=== PATIENT | male | born 1965 | race Caucasian/White ===

== ENCOUNTER 2018-08-12 10:42 | Day surgery (SDC) | payer OTHER ==
--- NOTE | 2018-07-20 09:10 | HP ---
Amended report to enter cosigning physician. PREOPERATIVE HISTORY AND PHYSICAL: DATE OF ADMISSION/SURGERY: 07/21/18 DATE OF OFFICE VISIT/ENCOUNTER: 07/18/18 ATTENDING SURGEON: Yumiko Mensah MD* (dictated by CRISTOFER Hogan). PROCEDURE: Open reduction and internal fixation, left 5th metacarpal. DRAFTING CLERK: Dr. Catalan. HISTORY OF PRESENT ILLNESS: This is a 53-year-old male who sustained injury to his right hand, specifically his 5th metacarpal on 07/12/18. He hit his hand on the top of a couch and ended up impacting hard bar instead of the cushion. He suffered a fracture of his 5th metacarpal. An x-ray of the hand showed a displaced fracture of the 5th metacarpal shaft. He denies any injury. He denies any associated numbness and tingling. This is his dominant hand. After clinical evaluation and review of x-rays, Dr. Mensah is recommending surgical intervention for best outcome and the patient has consented to proceed. He has cardiac history of a myocardial infarction in 2014. Stent placement in 2014. We will receive clearance from his chair spring assembler, Hossein prior to proceeding the surgery. The patient is on Plavix and he will remain on Plavix during the perioperative timeframe. PAST MEDICAL HISTORY: 1. Myocardial infarction in 2014. 2. Hypercholesterolemia. 3. GERD. 4. Bipolar disorder. PAST SURGICAL HISTORY: 1. Stent placement in 2014. 2. Right ankle. 3. Left hip. 4. Testicular torsion. CURRENT MEDICATIONS: 1. Aspirin 81 mg daily. 2. Atorvastatin calcium 80 mg daily. 3. Gabapentin 400 mg daily. 4. Ibuprofen 200 mg 3 tabs p.o. q.a.m. p.r.n. 5. Lamictal 150 mg 1 tab twice a day. 6. Metoprolol succinate ER 25 mg daily. 7. Nitroglycerin 0.4 mg 1 sublingual q.5 minutes x3 p.r.n. 8. Pantoprazole sodium 40 mg daily. 9. Plavix 75 mg daily. ALLERGIES: No known drug allergies. FAMILY MEDICAL HISTORY: Heart disease, hypertension, cancer. SOCIAL HISTORY: The patient is unemployed. He is on disability. He is a current smoker, he smokes approximately a pack per day and has done so since the age of 19, which is approximately 33 years. He smokes marijuana on regular occasion. He denies alcohol use. REVIEW OF SYSTEMS: General: Positive for weight loss. Negative for cephalic, cardiovascular. Respiratory is positive for seasonal allergies. GI is positive for constipation. Negative , other musculoskeletal, integumentary, and endocrine. Neurologic is positive for depression/anxiety. Negative hematologic symptoms. Infectious Diseases: Negative for history MRSA, hepatitis C, HIV. PHYSICAL EMANATION: GENERAL: A well-developed, well-nourished 53-year-old male , in no acute distress. VITAL SIGNS: Height 6 feet tall, weight 140 pounds, blood pressure 117/71, pulse rate 68. HEENT: Normocephalic, atraumatic. Pupils are equal, round, and reactive to light and accommodation. Extraocular movements are intact. Throat is clear. NECK: Supple. No palpable lymph nodes. PULMONARY: Lungs are clear to auscultation bilaterally. No wheezes, rales, or rhonchi. CARDIOVASCULAR: Regular rat and rhythm. S1, S2. No murmurs, rubs, or gallops. No edema. ABDOMEN: Positive bowel sounds, soft, nontender. Neurological: Alert and oriented x3. Cranial nerves II through XII are intact. Sensation is intact to light touch. MUSCULOSKELETAL: On exam of his left hand, he has significant swelling on the dorsal aspect of the hand and tenderness at the 5th metacarpal. There is some deformity with extension of his finger. He can flex the finger fairly well. Neurovascular function is intact. Skin is intact. IMAGING STUDIES: X-rays AP, lateral, and oblique of the left hand showed displaced fracture of the 5th metacarpal. IMPRESSION: Left 5th metacarpal fracture. PLAN: The patient is scheduled to undergo an open reduction and internal fixation of the left 5th metacarpal with Dr. Mensah on 07/21/18. He will return to the office 10 days postop for followup and suture removal. A prescription for [place] was e-scribed to the patient's pharmacy for postoperative pain management. CRISTOFER HOGAN [id number]/[facility] #: [id number] MATT
[~2018-08-12 10:42] MED LIST: Buffered Lidocaine 1% SYRIN* 1 ML/SYRINGE INTRADERM ONE; Dexamethasone IV* 4 MG/ML 1 ML (4 MG) IV SLOW PU ONE; DiMENhydriNATE IV* 50 MG/ML VIAL IV PUSH PRN; Famotidine IV* 10 MG/ML 2 ML (20 mg) IV ONE; HYDROcodone/ACETAMIN 5-325 MG* 1 TAB PO PRN; Lactated Ringers 1000 ML Bag* 1,000 ML IV SCH; Naloxone* 0.4 MG/ML 1 ML VIAL IV PRN; fentaNYL* 50 MCG/ML 2 ML VIAL (100 MCG VIAL) IV PRN; oxyCODONE/Acetamin 5/325 MG* TAB PO PRN
[2018-08-12] MEDS ORDERED: ceFAZolin 2 GM in NS PREMIX(*) 0 GM/0 ML BAG IVPB ONE (11:45)
[2018-08-12] MEDS ORDERED: Bupivacaine 0.5%* 50 ML VIAL ONE (12:17)
[2018-08-12] MEDS ORDERED: oxyCODONE/Acetamin 5/325 MG* TAB PO PRN (12:40)
[2018-08-12] MEDS ORDERED: DiMENhydriNATE IV* 50 MG/ML VIAL IV PUSH PRN (12:40)
[2018-08-12] MEDS ORDERED: fentaNYL* 50 MCG/ML 2 ML VIAL (100 MCG VIAL) IV PRN (12:40)
[2018-08-12] MEDS ORDERED: Naloxone* 0.4 MG/ML 1 ML VIAL IV PRN (12:40)
[2018-08-12] MEDS ORDERED: Acetaminophen TAB* 325 MG PO PRN (12:40)
[2018-08-12] MEDS ORDERED: Ondansetron INJ* 2 MG/ML VIAL ONE (12:44)
[2018-08-12] MEDS ORDERED: Propofol* 10 MG/ML 20 ML BTL ONE (12:44)
[2018-08-12] MEDS ORDERED: Dexamethasone IV* 4 MG/ML 1 ML (4 MG) ONE (12:44)
[2018-08-12] MEDS ORDERED: fentaNYL* 50 MCG/ML 2 ML VIAL (100 MCG VIAL) ONE (12:44)
[2018-08-12] MEDS ORDERED: Midazolam* 1 MG/ML 2 ML VIAL (2 MG) ONE (12:46)
[2018-08-12] MEDS ORDERED: EPHEDrine (Pressors)* 50 MG/ML VIAL ONE (13:11)
[2018-08-12] MEDS ORDERED: hydrALAZINE IV* 20 MG/ML VIAL ONE (14:30)
--- NOTE | 2018-08-12 15:14 | OP ---
DATE OF OPERATION: 08/12/18 - SDS DATE OF : 69 SURGEON: Yumiko Mensah MD VESSEL MANAGER: CRISTOFER Miller ANESTHESIA: General. PRE-OP DIAGNOSIS: Metacarpal fracture, left small finger. POST-OP DIAGNOSIS: Metacarpal fracture, left small finger. OPERATIVE PROCEDURE: Open reduction and internal fixation of the left small finger metacarpal fracture. ESTIMATED BLOOD LOSS: Zero. TOURNIQUET TIME: 43 minutes. INDICATIONS FOR PROCEDURE: Jude is a 53-year-old male who injured his left hand when he hit the back of his couch. He suffered a fracture of his fifth metacarpal which is significantly displaced. He presents for open reduction and internal fixation. DESCRIPTION OF PROCEDURE: The patient was brought to the operating room, was given a general anesthetic and placed in the supine position on the operating table with a tourniquet around his left upper arm. The skin of his left upper extremity was prepped and draped in the usual sterile fashion. The hand and forearm were exsanguinated and the tourniquet elevated to 250 mmHg. A longitudinal incision was made on the dorsal ulnar border of the fifth metacarpal and we dissected through the subcutaneous tissue down to the periosteum. The extensor tendons were retracted by the surgical assistance, Shanelle Avila. The periosteum was incised and the fracture fragments were accessed. There was abundant healing callus and this was debrided to free up the fracture fragments. We were then able to reduce the fracture with traction and a reduction clamp was used to hold them in place. A 6-hole plate was used to secure the proximal fragment to the distal fragment. Two screws were placed distally and three were placed proximally, and then an interfragmentary screw was secured from the ulnar aspect to the radial aspect across the fracture site. The position of the hardware and fracture fragments was checked on the C- arm in the AP and lateral views and found to be satisfactory. The wound was irrigated copiously with saline. The periosteum was repaired with 3-0 Vicryl suture and the skin edges were reapproximated with 4-0 nylon suture. The wound was dressed with Xeroform, 4x4, Webril, and Coban. The patient tolerated the procedure well and was brought to the recovery room in good condition. [id number]/[facility] #: [id number] [facility]
[2018-08-12] MEDS ORDERED: oxyCODONE/Acetamin 5/325 MG* TAB ONE (15:15)
[2018-08-12 15:48] VITALS: BP 136/87
== END 2018-08-12 15:44 | disposition home or self-care (01) ==
LOC: OR 10:42
PROVIDERS: ATTEND Orthopaedic Surgery
DX: S62.327A Displaced fracture of shaft of fifth metacarpal bone, left hand, initial encounter for closed fracture (principal); W22.8XXA Striking against or struck by other objects, initial encounter; Y92.9 Unspecified place or not applicable; I25.2 Old myocardial infarction; E78.00 Pure hypercholesterolemia, unspecified; K21.9 Gastro-esophageal reflux disease without esophagitis; F31.9 Bipolar disorder, unspecified; F17.210 Nicotine dependence, cigarettes, uncomplicated; I25.10 Atherosclerotic heart disease of native coronary artery without angina pectoris
CPT/HCPCS: 76000; A9270-GY; C1713; C1776; J0360; J0690; J1100; J2250; J2405; J2704; J3010; J3490